=== PATIENT | male | born 1995 | race American Indian/Alaskan Native ===

== ENCOUNTER 2021-07-05 15:19 | Emergency (ER) | payer OTHER ==
[2021-07-05 15:22] VITALS: BP 128/98
[2021-07-05] MEDS ORDERED: KETOROLAC 10 MG TAB PO ONE (17:05)
[2021-07-05] MEDS ORDERED: CYCLOBENZAPRINE 10 MG TAB PO ONE (17:05)
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
== END 2021-07-05 19:02 | disposition home or self-care (01) ==
LOC: ED 15:19
DX: M54.2 Cervicalgia (principal); M25.562 Pain in left knee; V89.2XXA Person injured in unspecified motor-vehicle accident, traffic, initial encounter; Y93.89 Activity, other specified; Y92.89 Other specified places as the place of occurrence of the external cause; Y99.8 Other external cause status
CPT/HCPCS: 72040; 99283